=== PATIENT | female | born 1980 | race African-American/Black ===

== ENCOUNTER 2020-10-15 10:57 | Outpatient (CLI) | payer BC ==
--- NOTE | 2020-10-15 13:10 | Mammography Report ---
DIGITAL DIAGNOSTIC MAMMOGRAM WITH CAD CONVENTIONAL, 10/15/2020 CLINICAL INFORMATION / INDICATION: Palpable abnormalities in the breast for a few years. BREAST LUMP N63.0. No discrete site of palpable concern as marked on either breast. TECHNIQUE: Digital bilateral mammographic imaging was performed. This examination was interpreted with the benefit of Computer-aided Detection analysis. COMPARISON: 06/21/2014 FINDINGS: Breast Density: The breasts are extremely dense, which lowers the sensitivity of mammography. No dominant mass, suspicious calcifications or architectural distortion in either breast. IMPRESSION: No mammographic evidence of malignancy. Follow up recommendation: Routine yearly. Clinical correlation is recommended regarding areas of palpable concern. If there is a discrete, conc erning palpable abnormality, targeted ultrasound imaging is recommended. BI-RADS Category 1: Negative. A "normal" or negative report should not discourage follow up or biopsy of a clinically significant f inding. A written summary of these findings will be mailed to the patient. The patient will be entered into a mammography reporting system which will generate a reminder letter for the patient's next appointmen t at the appropriate interval. According to the [employer], yearly mammograms are recommended starting at age 40 and continuing as long as a woman is in good health. Breast MRI is recommended for women with an sadia roximately 20-25% or greater lifetime risk of breast cancer, including women with a strong family his tory of breast or ovarian cancer and women who have been treated for Hodgkin's disease. Signer Name: Escobar Chowdhury MD Signed: 10/15/2020 1:05 PM Workstation Name: [id number]
== END 2020-10-15 10:58 | disposition home or self-care (01) ==
LOC: SPVWC 10:57
PROVIDERS: ATTEND Family Medicine
DX: N63.0 Unspecified lump in unspecified breast (principal); R92.8 Other abnormal and inconclusive findings on diagnostic imaging of breast
CPT/HCPCS: 77066